=== PATIENT | female | born 1990 | race Caucasian/White ===

== ENCOUNTER 2016-08-18 07:08 | Day surgery (SDC) | payer OTHER ==
[~2016-08-18] VITALS: Ht 180.3 cm; Wt 72.1 kg
--- NOTE | ~2016-08-18 | OR ---
PATIENT'S NAME: DAVEY CONTRERAS [facility] AGE: 25 Y [address] 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 Chronic right ethmoid maxillary sinusitis. 2. Chronic left anterior ethmoid sinusitis. POSTOPERATIVE DIAGNOSES: 1. Chronic right ethmoid maxillary sinusitis. 2. Chronic left anterior ethmoid sinusitis. OPERATIONS/PROCEDURES: 1. Right total endoscopic ethmoidectomy, middle meatal antrostomy. 2. Left anterior endoscopic ethmoidectomy, middle meatal antrostomy. 3. Bilateral inferior turbinate outfracture. 4. Placement of bilateral propel implants. 5. Stealth image guidance. ANESTHESIA: General endotracheal anesthesia. ESTIMATED BLOOD LOSS: Minimal. COMPLICATIONS: None. DESCRIPTION OF PROCEDURE: The patient was taken to the operating room, laid in supine position, and underwent general endotracheal anesthesia. The table was rotated to 180 degrees. Head was placed in the upright position. Cocaine- soaked pledgets placed within the nasal vestibule, right and left respectively. SteCensorNet image guidance reference frame was placed and calibrated. The patient was then prepped and draped in the usual sterile fashion. Cocaine-soaked pledgets were removed from the right nasal vestibule. A 0-degree rigid Dempsey telescope was inserted within the nasal vestibule with visualization of the lateral nasal wall. Inferior turbinate was outfractured. Middle turbinate was then reflected medially. Uncinate process as well as middle turbinate were infiltrated with 1% lidocaine with epinephrine solution. Right infundibulotomy incision performed with a sickle knife. The uncinate process was taken down using a 0-degree microdebrider. The lateral wall of the middle turbinate was then resected. Anterior ethmoid bulla was then fractured open. Anterior ethmoidectomy was then performed and PATIENT'S NAME: DAVEY CONTRERAS [facility] AGE: 25 Y [address] ROOM: [place] [address] [place] [facility] [place]: 08/18/2016 OR/Procedure Report DISCHARGE DATE: 08/18/2016 FAMILY PHYSICIAN: Lori Nguyen ATTENDING PHYSICIAN: Anish Sanchez V carried along the inferior aspect of the middle turbinate, Skeletonizing the lamina papyracea. Grand lamella was infractured opened. The posterior ethmoid cells were opened as well as the anterior wall of the sphenoid sinus. Skull base was identified and confirmed with the Stealth image guidance. The posterior and anterior ethmoidectomy was then performed carried along the skull base up to the frontal recess. This was opened using upbiting forceps. Posterior fontanelle was then palpated using the double-ball Krystle ostium seeker open. There was some thick retained mucus, this was suction in a Lukens trap and sent for aerobic, anaerobic, and fungal cultures. A large middle meatal antrostomy was then performed using backbiting forceps. Maxillary sinus was irrigated with copious amounts of saline solution. Hemostasis was noted to be adequate. Cocaine-soaked pledgets placed within the right nasal vestibule. Attention was turned to the left. The patient was noted to have a posterior nasal septal spur, this was reflected medially. The uncinate process palpated and infiltrated with 1% lidocaine with epinephrine solution. Middle turbinate was reflected laterally. Anterior ethmoidectomy and maxillary antrostomy were performed on the left in a similar fashion as that of the right. There was no gross purulence within the maxillary sinus on the left. Hemostasis was noted to be adequate. Left inferior turbinate was outfractured. Propel implant was then placed within the left nasal vestibule. Bactroban ointment placed. Cocaine-soaked pledgets removed from the right. Propel implant was placed. Ethmoid cavity was filled with Bactroban ointment. The patient tolerated the procedure well, was aroused, extubated, and discharged from the operating room to recovery room in satisfactory condition. MD RACHEL DEL TORO/marianna /[id number] CC: Anton Pina MD/JÚNIOR Leblanc d: 08/18/162036 t: 08/22/16 0801, OPERATIVE SUMMARY
[~2016-08-18 07:08] MED LIST: ADVIL200 MG PO; NEURONTIN300 MG PO; NORCO 7.5-3251 EACH PO
[2016-08-18] MEDS ORDERED: NORCO 5-325 TA1 EACH PO (10:44)
[2016-08-18] MEDS ORDERED: AFRIN) (GENASAL15 ML NOSE (10:45)
[2016-08-18] MEDS ORDERED: KEFLEX500 MG PO (11:07)
== END 2016-08-18 12:00 | disposition disaster alternative care site (69) ==
LOC: GSDC 07:08 → GPOC 10:00 → GSDC 12:00
PROC: 8E09XBZ Computer Assisted Procedure of Head and Neck Region (ICD-10-PCS; principal; 2016-08-18)
PROC: 099Q4ZZ Drainage of Right Maxillary Sinus, Percutaneous Endoscopic Approach (ICD-10-PCS; 2016-08-18)
PROC: 099R4ZZ Drainage of Left Maxillary Sinus, Percutaneous Endoscopic Approach (ICD-10-PCS; 2016-08-18)
PROC: 8E09XBZ Computer Assisted Procedure of Head and Neck Region (ICD-10-PCS; 2016-08-18)
PROC: 09BV4ZZ Excision of Left Ethmoid Sinus, Percutaneous Endoscopic Approach (ICD-10-PCS; 2016-08-18)
PROC: 09BU4ZZ Excision of Right Ethmoid Sinus, Percutaneous Endoscopic Approach (ICD-10-PCS; 2016-08-18)
PROC: 09SL4ZZ Reposition Nasal Turbinate, Percutaneous Endoscopic Approach (ICD-10-PCS; 2016-08-18)
DX: J32.0 Chronic maxillary sinusitis (principal); J32.2 Chronic ethmoidal sinusitis; F17.200 Nicotine dependence, unspecified, uncomplicated; Z88.0 Allergy status to penicillin; Z79.899 Other long term (current) drug therapy; Z98.890 Other specified postprocedural states
CPT/HCPCS: A9270; J1100; J2001; J2250; J3010; J7030